=== PATIENT | female | born 1980 | race American Indian/Alaskan Native ===

== ENCOUNTER 2024-10-01 06:41 | Day surgery (SDC) | payer OTHER ==
[2024-09-24 12:29] VITALS: BP 112/73
[~2024-10-01] VITALS: Ht 157.5 cm; Wt 48.1 kg
[~2024-10-01 06:41] MED LIST: NIFEDIPINE XL30 MG PO; PERCOCET 5/3251 TAB PO; SYNTHROID50 MCG PO; TERBUTALINE SU2.5 MG PO
[2024-10-01] MEDS ORDERED: POVIDONE-IODINE 118 ML BOTT TOP ONE (07:53)
[2024-10-01] MEDS ORDERED: CIPROFLOXACIN IN 5 % DEXTROSE 400 MG/200 ML PIGGYBAG IV ONE ×3 (07:53→14:15)
[2024-10-01] MEDS ORDERED: METHYLERGONOVINE MALEATE 0.2 MG/ML AMPUL ONE ×2 (09:33→14:07)
[2024-10-01] MEDS ORDERED: FAMOTIDINE/PF 20 MG/2 ML VIAL ONE (10:54)
[2024-10-01] MEDS ORDERED: FUROsemide 20 MG/2 ML VIAL ONE (10:54)
[2024-10-01] MEDS ORDERED: METHYLERGONOVINE MALEATE 0.2 MG/ML AMPUL IM SCH (11:00)
[2024-10-01] MEDS ORDERED: FUROsemide 20 MG/2 ML VIAL IV ONE ×2 (11:05→11:45)
[2024-10-01] MEDS ORDERED: ONDANSETRON HCL 2 MG/ML VIAL ONE (11:17)
[2024-10-01] MEDS ORDERED: ONDANSETRON HCL 2 MG/ML VIAL IV ONE (11:25)
[2024-10-01] MEDS ORDERED: FAMOtidine 10 MG/ML (4ML VIAL) IV ONE (11:45)
== END 2024-10-01 17:50 | disposition home or self-care (01) ==
LOC: CIR.AMB 06:41
PROVIDERS: ATTEND Obstetrics & Gynecology
DX: D25.0 Submucous leiomyoma of uterus (principal); N84.0 Polyp of corpus uteri; N92.4 Excessive bleeding in the premenopausal period; Z88.1 Allergy status to other antibiotic agents; Z91.02 Food additives allergy status; Z88.0 Allergy status to penicillin; Z91.048 Other nonmedicinal substance allergy status; E03.8 Other specified hypothyroidism; M19.90 Unspecified osteoarthritis, unspecified site